=== PATIENT | female | born 1965 | race Caucasian/White ===

== ENCOUNTER 2021-04-28 11:30 | Emergency (ER) | payer OTHER ==
[~2021-04-28] VITALS: Ht 157.5 cm; Wt 68.0 kg
[~2021-04-28 11:30] MED LIST: GATI5OPSO OD; HYDACE10B PO; HYDACE5 PO; LEVSOD25 PO; OXYACE5T PO; SULTRIDS PO
== END 2021-04-28 12:52 | disposition home or self-care (01) ==
LOC: ER 11:30
DX: S20.212A Contusion of left front wall of thorax, initial encounter (principal); Z88.8 Allergy status to other drugs, medicaments and biological substances; W01.190A Fall on same level from slipping, tripping and stumbling with subsequent striking against furniture, initial encounter
CPT/HCPCS: 71046; 99283-25

== ENCOUNTER → 2021-12-25 | Outpatient (CLI) | payer OTHER ==
[2021-12-27 15:07] LABS: HPV 16 Negative (Negative); HPV 18 Negative (Negative); HPV OTHER HR TYPES Negative (Negative)
== END | disposition home or self-care (01) ==
LOC: LAB 16:10 → LAB SHORT 16:10
PROVIDERS: Family Medicine
DX: Z01.419 Encounter for gynecological examination (general) (routine) without abnormal findings (principal)
CPT/HCPCS: 87624; G0123

== ENCOUNTER → 2025-02-23 | Outpatient (CLI) | payer OTHER | END | disposition home or self-care (01) | LOC: LAB SHORT 07:13 → LAB 07:13 | DX: D49.0 Neoplasm of unspecified behavior of digestive system (principal) | CPT/HCPCS: 88173 ==